=== PATIENT | female | born 1965 | race Asian ===

== ENCOUNTER 2022-03-16 14:14 | Outpatient (CLI) | payer OTHER | END 2022-03-16 14:15 | disposition home or self-care (01) | LOC: CSHMAMMO 14:14 | PROVIDERS: ATTEND Family Medicine | DX: Z12.31 Encounter for screening mammogram for malignant neoplasm of breast (principal); Z13.820 Encounter for screening for osteoporosis; M81.0 Age-related osteoporosis without current pathological fracture; Z78.0 Asymptomatic menopausal state | CPT/HCPCS: 77063; 77067; 77080 ==

== ENCOUNTER 2023-06-28 15:14 | Outpatient (CLI) | payer OTHER | END 2023-06-28 15:15 | disposition home or self-care (01) | LOC: CSHMAMMO 15:14 | PROVIDERS: ATTEND Family Medicine | DX: Z12.31 Encounter for screening mammogram for malignant neoplasm of breast (principal) | CPT/HCPCS: 77063; 77067 ==